=== PATIENT | female | born 1965 | race Caucasian/White ===

== ENCOUNTER → 2016-06-29 | Outpatient (REF) | payer OTHER ==
[2016-06-29 11:57] LABS: ALBUMIN 3.9 GM/DL (3.2-5.2); ALBUMIN/GLOBULIN RATIO 1.18 (1.00-1.93); ALKALINE PHOSPHATASE 80 U/L (45-117); ALT/SGPT 24 U/L (12-78); ANION GAP 8 MEQ/L (8-16); AST/SGOT 15 U/L (15-37); BILIRUBIN,TOTAL 0.3 MG/DL (0.2-1.0); BLOOD UREA NITROGEN 12 MG/DL (7-18); CARBON DIOXIDE LEVEL 26 MEQ/L (21-32); CHLORIDE LEVEL 108 MEQ/L (98-107); CHOLESTEROL LEVEL 274 MG/DL (<200); CREATININE FOR GFR 0.65 MG/DL (0.55-1.02); GLOMERULAR FILTRATION RATE > 60.0 (>58); GLUCOSE, FASTING 77 MG/DL (70-105); SODIUM LEVEL 142 MEQ/L (136-145); TOTAL PROTEIN 7.2 GM/DL (6.4-8.2); TRIGLYCERIDES LEVEL 685 MG/DL (<150)
== END ==
LOC: M SFHCCLAY 08:01
PROVIDERS: ATTEND Family Medicine
DX: E78.2 Mixed hyperlipidemia (principal)

== ENCOUNTER → 2016-09-26 | Outpatient (CLI) | payer OTHER ==
[~2016-09-26] VITALS: Ht 162.6 cm; Wt 70.3 kg
[~2016-09-26] MED LIST: FENO160T10 PO; LIDOCAINE 2% INJ 100 MG/5 ML SDV (FOR ANES.) As Ordered ONE; LR 1,000 ML IV SCH; OMEP40CA2 PO; PROPOFOL 200 MG/20 ML VIAL As Ordered ONE; SIMV40TA2 PO
--- NOTE | 2016-09-26 15:12 | ROOR ---
Patient Name: Allyn Biggs Procedure Date: 09/26/2016 1:54 PM Date of : 1965 Age: 50 Room: [facility] Gender: Female Note Status: Finalized Procedure: Upper GI endoscopy Indications: Suspected esophageal reflux Providers: Jaylen Haddad MD Referring MD: TAWNYA HOLDEN DO Requesting Provider: Medicines: Monitored Anesthesia Care Complications: No immediate complications. Procedure: Pre-Anesthesia Assessment: - Prior to the procedure, a History and Physical was performed, and patient medications and allergies were reviewed. The patient is competent. The risks and benefits of the procedure and the sedation options and risks were discussed with the patient. All questions were answered and informed consent was obtained. Patient identification and proposed procedure were verified by the physician, the nurse and the accelerator systems director in the procedure room. Mental Status Examination: alert and oriented. Airway Examination: normal oropharyngeal airway and neck mobility. CV Examination: regular rate and rhythm. Prophylactic Antibiotics: The patient does not require prophylactic antibiotics. Prior Anticoagulants: The patient has taken no previous anticoagulant or antiplatelet agents. ASA Grade Assessment: II - A patient with mild systemic disease. After reviewing the risks and benefits, the patient was deemed in satisfactory condition to undergo the procedure. The anesthesia plan was to use monitored anesthesia care (MAC). Immediately prior to administration of medications, the patient was re-assessed for adequacy to receive sedatives. The heart rate, respiratory rate, oxygen saturations, blood pressure, adequacy of pulmonary ventilation, and response to care were monitored throughout the procedure. The physical status of the patient was re-assessed after the procedure. The Endoscope was introduced through the mouth, and advanced to the second part of duodenum. The upper GI endoscopy was accomplished without difficulty. The patient tolerated the procedure well. Findings: The upper third of the esophagus and middle third of the esophagus were normal. The Z-line was regular with a couple of small erostions. and was found 35 cm from the incisors. Biopsies were taken with a cold forceps for histology. A 2 cm hiatal hernia was present. The examined duodenum was normal. A single 3 mm sessile polyp with no bleeding and no stigmata of recent bleeding was found in the cardia. The polyp was removed with a jumbo cold forceps. Resection and retrieval were complete. Estimated blood loss was minimal. Impression: - Normal upper third of esophagus and middle third of esophagus. - Z-line regular with a couple of small erostions., 35 cm from the incisors. Biopsied. - 2 cm hiatal hernia. - Normal examined duodenum. - A single gastric polyp. Resected and retrieved. Recommendation: - Discharge patient to home. - Resume previous diet. - Continue present medications. - Await pathology results. - Return to my office in 2 weeks. Jaylen Haddad MD 09/26/2016 3:12:14 PM Number of Addenda: 0 Note Initiated On: 09/26/2016 1:54 PM Estimated Blood Loss: Estimated blood loss was minimal.
[2016-09-26 15:15] VITALS: BP 126/77
--- NOTE | 2016-09-26 15:22 | ROOR ---
Patient Name: Allyn Biggs Procedure Date: 09/26/2016 1:54 PM Date of : 1965 Age: 50 Room: [facility] Gender: Female Note Status: Finalized Procedure: Colonoscopy Indications: Follow-up of diverticulitis Providers: Jaylen Haddad MD Referring MD: TAWNYA HOLDEN DO Requesting Provider: Medicines: Monitored Anesthesia Care Complications: No immediate complications. Procedure: Pre-Anesthesia Assessment: - Prior to the procedure, a History and Physical was performed, and patient medications and allergies were reviewed. The patient is competent. The risks and benefits of the procedure and the sedation options and risks were discussed with the patient. All questions were answered and informed consent was obtained. Patient identification and proposed procedure were verified by the physician, the nurse and the lead nuclear medicine technologist in the procedure room. Mental Status Examination: alert and oriented. Airway Examination: normal oropharyngeal airway and neck mobility. CV Examination: regular rate and rhythm. Prophylactic Antibiotics: The patient does not require prophylactic antibiotics. Prior Anticoagulants: The patient has taken no previous anticoagulant or antiplatelet agents. ASA Grade Assessment: II - A patient with mild systemic disease. After reviewing the risks and benefits, the patient was deemed in satisfactory condition to undergo the procedure. The anesthesia plan was to use monitored anesthesia care (MAC). Immediately prior to administration of medications, the patient was re-assessed for adequacy to receive sedatives. The heart rate, respiratory rate, oxygen saturations, blood pressure, adequacy of pulmonary ventilation, and response to care were monitored throughout the procedure. The physical status of the patient was re-assessed after the procedure. The was introduced through the anus and advanced to the cecum, identified by appendiceal orifice and ileocecal valve. The colonoscopy was performed without difficulty. The patient tolerated the procedure well. The quality of the bowel preparation was excellent. Findings: The perianal and digital rectal examinations were normal. A 11 mm polyp was found in the sigmoid colon. The polyp was pedunculated. The polyp was removed with a hot snare. Resection and retrieval were complete. Multiple small-mouthed diverticula were found in the sigmoid colon and descending colon. Impression: - One 11 mm polyp in the sigmoid colon, removed with a hot snare. Resected and retrieved. - Diverticulosis in the sigmoid colon and in the descending colon. Recommendation: - Discharge patient to home. - Resume previous diet. - Continue present medications. - Await pathology results. - Return to endoscopist in 2 weeks. Jaylen Haddad MD 09/26/2016 3:21:44 PM Number of Addenda: 0 Note Initiated On: 09/26/2016 1:54 PM Estimated Blood Loss: Estimated blood loss: none.
== END | disposition home or self-care (01) ==
LOC: M OPP 13:01
PROVIDERS: ATTEND Surgery
DX: Z09 Encounter for follow-up examination after completed treatment for conditions other than malignant neoplasm (principal); Z87.19 Personal history of other diseases of the digestive system; D12.5 Benign neoplasm of sigmoid colon; K57.30 Diverticulosis of large intestine without perforation or abscess without bleeding; K44.9 Diaphragmatic hernia without obstruction or gangrene; K31.7 Polyp of stomach and duodenum; K21.9 Gastro-esophageal reflux disease without esophagitis; K20.9 Esophagitis, unspecified; M19.90 Unspecified osteoarthritis, unspecified site; F33.9 Major depressive disorder, recurrent, unspecified; F41.9 Anxiety disorder, unspecified; E78.00 Pure hypercholesterolemia, unspecified; Z79.899 Other long term (current) drug therapy; Z88.5 Allergy status to narcotic agent; Z87.891 Personal history of nicotine dependence

== ENCOUNTER → 2016-10-02 | Outpatient (REF) | payer OTHER ==
[~2016-10-02] MED LIST changes: -LIDOCAINE 2% INJ 100 MG/5 ML SDV (FOR ANES.) As Ordered ONE; -LR 1,000 ML IV SCH; -PROPOFOL 200 MG/20 ML VIAL As Ordered ONE
[2016-10-02 18:36] LABS: ALBUMIN 3.6 GM/DL (3.2-5.2); ALBUMIN/GLOBULIN RATIO 0.92 (1.00-1.93); ALKALINE PHOSPHATASE 76 U/L (45-117); ALT/SGPT 24 U/L (12-78); ANION GAP 7 MEQ/L (8-16); AST/SGOT 9 U/L (15-37); BILIRUBIN,TOTAL 0.4 MG/DL (0.2-1.0); BLOOD UREA NITROGEN 14 MG/DL (7-18); CALCIUM LEVEL 9.1 MG/DL (8.5-10.1); CARBON DIOXIDE LEVEL 28 MEQ/L (21-32); CHLORIDE LEVEL 105 MEQ/L (98-107); CHOLESTEROL LEVEL 312 MG/DL (<200); CREATININE FOR GFR 0.64 MG/DL (0.55-1.02); GLOMERULAR FILTRATION RATE > 60.0 (>58); GLUCOSE, FASTING 89 MG/DL (70-105); POTASSIUM SERUM 4.4 MEQ/L (3.5-5.1); SODIUM LEVEL 140 MEQ/L (136-145); TOTAL PROTEIN 7.5 GM/DL (6.4-8.2); TRIGLYCERIDES LEVEL 488 MG/DL (<150)
== END ==
LOC: M SFHCCLAY 09:34
PROVIDERS: ATTEND Family Medicine
DX: E78.2 Mixed hyperlipidemia (principal); Z01.419 Encounter for gynecological examination (general) (routine) without abnormal findings

== ENCOUNTER → 2017-04-03 | Outpatient (REF) | payer OTHER ==
[2017-04-03 16:38] LABS: MEAN CORPUSCULAR HEMOGLOBIN 23.9 pg (27.0-33.0); MEAN CORPUSCULAR HGB CONC 29.8 g/dl (32.0-36.5); PLATELET COUNT, AUTOMATED 376 10^3/uL (150-450); RED CELL DISTRIBUTION WIDTH 15.2 % (11.5-14.5); WHITE BLOOD COUNT 5.3 10^3/uL (4.0-10.0)
[2017-04-03 16:43] LABS: ALBUMIN/GLOBULIN RATIO 0.98 (1.00-1.93); ALKALINE PHOSPHATASE 78 U/L (45-117); ALT/SGPT 23 U/L (12-78); ANION GAP 7 MEQ/L (8-16); AST/SGOT 15 U/L (7-37); BILIRUBIN,TOTAL 0.3 MG/DL (0.2-1.0); BLOOD UREA NITROGEN 11 MG/DL (7-18); CALCIUM LEVEL 8.9 MG/DL (8.5-10.1); CARBON DIOXIDE LEVEL 27 MEQ/L (21-32); CHLORIDE LEVEL 106 MEQ/L (98-107); CHOLESTEROL LEVEL 270 MG/DL (<200); CREATININE FOR GFR 0.64 MG/DL (0.55-1.02); FERRITIN 5 NG/ML (8-252); GLOMERULAR FILTRATION RATE > 60.0 (>51); GLUCOSE, FASTING 97 MG/DL (70-105); POTASSIUM SERUM 4.1 MEQ/L (3.5-5.1); SODIUM LEVEL 140 MEQ/L (136-145); TOTAL PROTEIN 8.1 GM/DL (6.4-8.2); TRIGLYCERIDES LEVEL 441 MG/DL (<150)
== END ==
LOC: M SFHCCLAY 11:15
PROVIDERS: ATTEND Family Medicine
DX: E78.2 Mixed hyperlipidemia (principal); D64.9 Anemia, unspecified

== ENCOUNTER → 2017-04-10 | Outpatient (CLI) | payer OTHER ==
--- NOTE | 2017-04-11 14:36 | REP ---
Clinical: Menorrhagia . Technique: Transabdominal pelvic ultrasound followed by transvaginal examination for better evaluation of the endometrium and adnexa with color Doppler evaluation of the ovaries. Findings: Bladder is unremarkable and measures 8.8 x 6.5 x 3.8 cm . Heterogeneous, enlarged myomatous uterus measures 10.6 x 6.5 x 7.5 cm and includes 4.4 cm left lateral intramural fibroid along with suspected scattered ill-defined myomatous changes. The endometrial complex measures 12.4 mm thickness and there is suggestion for a 6.7 mm polyp. Subcentimeter Nabothian cysts in the cervical region noted as well. Right ovary is not visualized. Left ovary is normal in appearance and vascularity without torsion. Left ovary measures 2.8 x 2.7 x 2.7 cm ; R I = 0.59 . No pelvic fluid or adnexal mass lesion . Impression: 1. Heterogeneous myomatous uterus as described above along with a suspected 6.7 mm endometrial polyp. 2. Right ovary not visualized. Left ovary normal. Signed by Chauncey Thompson MD 04/11/2017 02:42 A
== END ==
LOC: M RAD 10:08
PROVIDERS: ATTEND Family Medicine
DX: Z87.42 Personal history of other diseases of the female genital tract (principal); D25.9 Leiomyoma of uterus, unspecified

== ENCOUNTER → 2017-05-17 | Outpatient (CLI) | payer OTHER | LOC: M RAD 12:54 | DX: M51.36 Other intervertebral disc degeneration, lumbar region (principal); M84.851 Other disorders of continuity of bone, right pelvic region and thigh; M51.26 Other intervertebral disc displacement, lumbar region; M51.27 Other intervertebral disc displacement, lumbosacral region | CPT/HCPCS: 72148 ==

== ENCOUNTER → 2017-06-05 | Outpatient (REF) | payer OTHER ==
[2017-06-05 11:30] LABS: HEMATOCRIT 31.4 % (36.0-47.0); HEMOGLOBIN 9.3 g/dl (12.0-16.0); MEAN CORPUSCULAR HEMOGLOBIN 23.4 pg (27.0-33.0); MEAN CORPUSCULAR HGB CONC 29.6 g/dl (32.0-36.5); MEAN CORPUSCULAR VOLUME 79.1 fl (80.0-96.0); PLATELET COUNT, AUTOMATED 361 10^3/uL (150-450); RED BLOOD COUNT 3.97 10^6/uL (4.00-5.40); RED CELL DISTRIBUTION WIDTH 16.6 % (11.5-14.5); WHITE BLOOD COUNT 5.1 10^3/uL (4.0-10.0)
[2017-06-05 11:37] LABS: INR 1.02; PROTHROMBIN TIME 13.5 SECONDS (12.4-14.5)
== END ==
LOC: M SFHCCLAY 09:12
DX: Z01.812 Encounter for preprocedural laboratory examination (principal)
CPT/HCPCS: 85610

== ENCOUNTER 2017-06-22 06:30 | Day surgery (SDC) | payer OTHER ==
[2017-06-22] MEDS ORDERED: KETOROLAC 60 MG/2 ML VIAL (J1885) As Ordered (06:34)
[2017-06-22] MEDS ORDERED: ONDANSETRON 4MG/2ML VIAL (J2405) As Ordered (06:34)
[2017-06-22] MEDS ORDERED: ROCURONIUM BROMIDE 50 MG/5 ML VIAL As Ordered (06:34)
[2017-06-22] MEDS ORDERED: dexameTHASONE 4 MG/ML 1ML VIAL (J1100) As Ordered ×2 (06:34→06:42)
[2017-06-22] MEDS ORDERED: GLYCOPYRROLATE INJ 0.2 MG/ML 2 ML VIAL As Ordered ×2 (06:34→06:35)
[2017-06-22] MEDS ORDERED: NEOSTIGMINE 10 MG/10 ML VIAL (J2710) As Ordered (06:34)
[2017-06-22] MEDS ORDERED: PROPOFOL 200 MG/20 ML VIAL As Ordered (06:34)
[2017-06-22] MEDS ORDERED: LIDOCAINE 2% INJ 100 MG/5 ML SDV (FOR ANES.) As Ordered (06:35)
[2017-06-22] MEDS ORDERED: fentaNYL 250 MCG/5 ML INJECTION (J3010) As Ordered (06:48)
[2017-06-22] MEDS ORDERED: MIDAZOLAM INJ 2 MG/2 ML VIAL (J2250) As Ordered (06:48)
[2017-06-22 06:59] LABS: HEMATOCRIT 33.8 % (36.0-47.0); HEMOGLOBIN 10.3 g/dl (12.0-16.0); MEAN CORPUSCULAR HEMOGLOBIN 23.8 pg (27.0-33.0); MEAN CORPUSCULAR HGB CONC 30.5 g/dl (32.0-36.5); MEAN CORPUSCULAR VOLUME 78.2 fl (80.0-96.0); PLATELET COUNT, AUTOMATED 313 10^3/uL (150-450); RED BLOOD COUNT 4.32 10^6/uL (4.00-5.40); RED CELL DISTRIBUTION WIDTH 17.3 % (11.5-14.5); WHITE BLOOD COUNT 4.9 10^3/uL (4.0-10.0)
[2017-06-22] MEDS: LR 1,000 ML IV ×4 (07:10→18:00)
[2017-06-22] MEDS ORDERED: SCOPOLAMINE 1MG TRANSDERMAL PATCH As Ordered (07:16)
[2017-06-22] MEDS: SCOPOLAMINE 1MG TRANSDERMAL PATCH TOP (07:30)
[2017-06-22] MEDS: METHYLENE BLUE 0.5% (5MG/ML) 10 ML AMP (PROVAYBLUE)(Q9968 PER 1MG) As Ordered (08:48)
[2017-06-22] MEDS: DOCUSATE SODIUM 100 MG CAP PO ×2 (09:00→20:56)
[2017-06-22] MEDS: BUPIVACAINE HCL 0.25% 10 ML VIAL As Ordered (09:15)
[2017-06-22] MEDS ORDERED: HYDROmorphone HCL 2 MG/ML 1ML VIAL (J1170) As Ordered (09:16)
[2017-06-22] MEDS ORDERED: HYDROmorphone HCL 1 MG/ML SYRINGE (J1170) IV (10:00)
[2017-06-22] MEDS ORDERED: METOCLOPRAMIDE INJ 10MG/2ML VIAL (J2765) IV (10:00)
[2017-06-22] MEDS ORDERED: PERCOCET 5MG/325MG TAB PO ×2 (10:00→14:43)
[2017-06-22] MEDS ORDERED: ONDANSETRON 4MG/2ML VIAL (J2405) IV (10:00)
[2017-06-22] MEDS: PERCOCET 5MG/325MG TAB PO ×4 (10:18→23:10)
[2017-06-22] MEDS: fentaNYL 100 MCG/2 ML INJECTION (J3010) IV ×2 (10:36→10:41)
[2017-06-22] MEDS: MORPHINE 4 MG/ML 1ML VIAL (J2270) IV (11:43)
[2017-06-22] MEDS: KETOROLAC 30 MG/ML VIAL (J1885) IV (18:20)
[2017-06-23] MEDS: MORPHINE 4 MG/ML 1ML VIAL (J2270) IV ×5 (00:19→23:45)
[2017-06-23] MEDS: LR 1,000 ML IV ×3 (02:00→13:20)
[2017-06-23] MEDS: KETOROLAC 30 MG/ML VIAL (J1885) IV ×2 (05:05→13:20)
[2017-06-23] MEDS: PERCOCET 5MG/325MG TAB PO ×4 (05:41→21:12)
[2017-06-23] MEDS: DOCUSATE SODIUM 100 MG CAP PO ×2 (08:34→21:11)
[2017-06-23 09:16] LABS: BASO % 0.2 % (0.0-1.0); EOS # 0.1 10^3/uL (0.0-0.50); EOS % 1.2 % (0.0-3.0); HEMATOCRIT 24.6 % (36.0-47.0); IMMATURE GRANULOCYTE % 0.2 % (0-3.0); LYMPH # 1.9 10^3/uL (1.5-4.5); LYMPH % 29.4 % (24.0-44.0); MEAN CORPUSCULAR HEMOGLOBIN 24.6 pg (27.0-33.0); MEAN CORPUSCULAR HGB CONC 31.3 g/dl (32.0-36.5); MEAN CORPUSCULAR VOLUME 78.6 fl (80.0-96.0); MONO # 0.6 10^3/uL (0.0-0.8); MONO % 8.6 % (0.0-5.0); NEUTROPHILS # 3.9 10^3/uL (1.8-7.7); NEUTROPHILS % 60.4 % (36.0-66.0); PLATELET COUNT, AUTOMATED 234 10^3/uL (150-450); RED BLOOD COUNT 3.13 10^6/uL (4.00-5.40); RED CELL DISTRIBUTION WIDTH 17.6 % (11.5-14.5); WHITE BLOOD COUNT 6.5 10^3/uL (4.0-10.0)
[2017-06-23 09:21] LABS: HEMOGLOBIN 7.7 g/dl (12.0-16.0)
[2017-06-23] MEDS: ONDANSETRON 4MG/2ML VIAL (J2405) IV (19:08)
[2017-06-24] MEDS: LR 1,000 ML IV (02:00)
[2017-06-24] MEDS: PERCOCET 5MG/325MG TAB PO ×3 (02:09→10:05)
[2017-06-24] MEDS: KETOROLAC 30 MG/ML VIAL (J1885) IV (10:04)
[2017-06-24] MEDS: DOCUSATE SODIUM 100 MG CAP PO (10:04)
== END 2017-06-24 10:45 | disposition home or self-care (01) ==
LOC: M SDC 06:30 → M PED 10:51
DX: D25.0 Submucous leiomyoma of uterus (principal); K21.9 Gastro-esophageal reflux disease without esophagitis; K57.90 Diverticulosis of intestine, part unspecified, without perforation or abscess without bleeding; E78.2 Mixed hyperlipidemia; D50.0 Iron deficiency anemia secondary to blood loss (chronic); F41.9 Anxiety disorder, unspecified; F32.9 Major depressive disorder, single episode, unspecified; M54.5 Low back pain; M16.11 Unilateral primary osteoarthritis, right hip; E88.81 Metabolic syndrome and other insulin resistance; Z79.899 Other long term (current) drug therapy; Z88.8 Allergy status to other drugs, medicaments and biological substances; Z88.5 Allergy status to narcotic agent; Z87.891 Personal history of nicotine dependence
CPT/HCPCS: 58570

== ENCOUNTER → 2017-09-25 | Outpatient (CLI) | payer OTHER ==
[2017-09-25 11:32] LABS: HEMATOCRIT 36.9 % (36.0-47.0); MEAN CORPUSCULAR HEMOGLOBIN 26.6 pg (27.0-33.0); MEAN CORPUSCULAR HGB CONC 32.5 g/dl (32.0-36.5); MEAN CORPUSCULAR VOLUME 81.8 fl (80.0-96.0); PLATELET COUNT, AUTOMATED 306 10^3/uL (150-450); RED BLOOD COUNT 4.51 10^6/uL (4.00-5.40); RED CELL DISTRIBUTION WIDTH 17.7 % (11.5-14.5)
[2017-09-25 11:43] LABS: INR 0.93; PROTHROMBIN TIME 12.5 SECONDS (12.4-14.5)
[2017-09-25 12:10] LABS: ALBUMIN 3.9 GM/DL (3.2-5.2); ALBUMIN/GLOBULIN RATIO 1.03 (1.00-1.93); ALKALINE PHOSPHATASE 100 U/L (45-117); ALT/SGPT 29 U/L (12-78); ANION GAP 6 MEQ/L (8-16); AST/SGOT 14 U/L (7-37); BILIRUBIN,TOTAL 0.4 MG/DL (0.2-1.0); BLOOD UREA NITROGEN 12 MG/DL (7-18); CALCIUM LEVEL 9.4 MG/DL (8.5-10.1); CARBON DIOXIDE LEVEL 29 MEQ/L (21-32); CHLORIDE LEVEL 104 MEQ/L (98-107); CREATININE FOR GFR 0.59 MG/DL (0.55-1.30); ERYTHROCYTE SEDIMENTATION RATE 35 mm/hr (0-30); GLOMERULAR FILTRATION RATE > 60.0 (>51); GLUCOSE, FASTING 92 MG/DL (70-100); SODIUM LEVEL 139 MEQ/L (136-145); TOTAL PROTEIN 7.7 GM/DL (6.4-8.2)
== END ==
LOC: M ADMPAT 10:30
DX: Z01.818 Encounter for other preprocedural examination (principal); M16.11 Unilateral primary osteoarthritis, right hip; Z88.5 Allergy status to narcotic agent
CPT/HCPCS: 71046

== ENCOUNTER 2017-10-15 08:54 | Inpatient (IN) | payer OTHER ==
[2017-10-15] MEDS: LR 1,000 ML IV ×3 (09:41→13:45)
[2017-10-15] MEDS ORDERED: ceFAZolin 1GM INJ (J0690 PER 500MG) As Ordered (10:23)
[2017-10-15] MEDS ORDERED: PROPOFOL 200 MG/20 ML VIAL As Ordered ×5 (11:55→12:22)
[2017-10-15] MEDS ORDERED: fentaNYL 100 MCG/2 ML INJECTION (J3010) As Ordered ×2 (12:00→12:22)
[2017-10-15] MEDS ORDERED: BUPIVACAINE/DEXTROSE 0.75% 2 ML AMP As Ordered ×2 (12:01→12:24)
[2017-10-15] MEDS ORDERED: MIDAZOLAM INJ 2 MG/2 ML VIAL (J2250) As Ordered ×2 (12:07→12:22)
[2017-10-15] MEDS: EPINEPHrine INJ 1 MG/ML 1ML AMP As Ordered (12:07)
[2017-10-15] MEDS: TRANEXAMIC ACID 100 MG/ML 10ML VIAL As Ordered (12:08)
[2017-10-15] MEDS ORDERED: LIDOCAINE 2% INJ 100 MG/5 ML SDV (FOR ANES.) As Ordered ×2 (12:22→12:55)
[2017-10-15] MEDS ORDERED: dexameTHASONE 4 MG/ML 1ML VIAL (J1100) As Ordered ×2 (12:23)
[2017-10-15] MEDS ORDERED: ONDANSETRON 4MG/2ML VIAL (J2405) As Ordered ×2 (12:23→13:14)
[2017-10-15] MEDS ORDERED: ePHEDrine SULFATE 25 MG/5 ML(5MG/ML) SYRINGE As Ordered (12:24)
[2017-10-15] MEDS ORDERED: MORPHINE 1MG/ML IN 0.9% NACL 100ML IV BAG As Ordered (12:46)
[2017-10-15] MEDS ORDERED: ROCURONIUM BROMIDE 50 MG/5 ML VIAL As Ordered (12:55)
[2017-10-15] MEDS ORDERED: METOCLOPRAMIDE INJ 10MG/2ML VIAL (J2765) As Ordered (13:14)
[2017-10-15] MEDS ORDERED: PHENYLephrine HCL 500 MCG/5 ML (100MCG/ML) SYRINGE (J2370) As Ordered (13:20)
[2017-10-15] MEDS ORDERED: NEOSTIGMINE 10 MG/10 ML VIAL (J2710) As Ordered ×2 (13:31→13:32)
[2017-10-15] MEDS ORDERED: GLYCOPYRROLATE INJ 0.2 MG/ML 2 ML VIAL As Ordered (13:31)
[2017-10-15] MEDS ORDERED: HYDROmorphone HCL 2 MG/ML 1ML VIAL (J1170) As Ordered (13:40)
[2017-10-15] MEDS ORDERED: FLEET ENEMA PR (13:45)
[2017-10-15] MEDS ORDERED: MORPHINE 10 MG/ML 1ML VIAL (J2270) IV (13:45)
[2017-10-15] MEDS ORDERED: EPIDURAL/PCA KEYS XX (13:45)
[2017-10-15] MEDS ORDERED: PERCOCET 5MG/325MG TAB PO (13:45)
[2017-10-15] MEDS ORDERED: NALBUPHINE HCL 10 MG/ML AMP (J2300) IV (13:45)
[2017-10-15] MEDS ORDERED: ONDANSETRON 4MG/2ML VIAL (J2405) IV ×2 (13:45)
[2017-10-15] MEDS ORDERED: METOCLOPRAMIDE INJ 10MG/2ML VIAL (J2765) IV (13:45)
[2017-10-15] MEDS ORDERED: ACETAMINOPHEN TAB 650MG DOSE (2X325MG) PO (13:45)
[2017-10-15] MEDS ORDERED: NALOXONE INJ 0.4 MG/1 ML VIAL (J2310) IV (13:45)
[2017-10-15] MEDS ORDERED: MORPHINE 1MG/ML IN 0.9% NACL 100ML IV BAG IV (13:45)
[2017-10-15] MEDS ORDERED: fentaNYL 100 MCG/2 ML INJECTION (J3010) IV (13:45)
[2017-10-15] MEDS: ONDANSETRON 4MG/2ML VIAL (J2405) IV (20:19)
[2017-10-16] MEDS: ONDANSETRON 4MG/2ML VIAL (J2405) IV (01:28)
[2017-10-16] MEDS: LR 1,000 ML IV (03:05)
[2017-10-16] MEDS: diphenhydrAMINE INJ 50MG/ML VIAL (J1200) IV (04:10)
[2017-10-16] MEDS ORDERED: traMADol 50 MG TAB PO (07:00)
[2017-10-16] MEDS ORDERED: ONDANSETRON 4 MG TAB (S0181) PO (07:00)
[2017-10-16 07:06] LABS: HEMATOCRIT 28.9 % (36.0-47.0); HEMOGLOBIN 9.8 g/dl (12.0-15.5); MEAN CORPUSCULAR HEMOGLOBIN 28.1 pg (27.0-33.0); MEAN CORPUSCULAR HGB CONC 33.9 g/dl (32.0-36.5); MEAN CORPUSCULAR VOLUME 82.8 fl (80.0-96.0); PLATELET COUNT, AUTOMATED 247 10^3/uL (150-450); RED BLOOD COUNT 3.49 10^6/uL (4.00-5.40); RED CELL DISTRIBUTION WIDTH 17.1 % (11.5-14.5); WHITE BLOOD COUNT 7.4 10^3/uL (4.0-10.0)
[2017-10-16] MEDS: SENOKOT S TAB PO ×2 (08:44→21:16)
[2017-10-16] MEDS: traMADol 50 MG TAB PO ×3 (08:45→17:05)
[2017-10-16] MEDS: RIVAROXABAN 10 MG TAB (XARELTO) PO (08:45)
[2017-10-16] MEDS: MIRALAX *UNIT DOSE* 17GM PACKET PO (08:45)
[2017-10-16] MEDS: MOM 30ML SUSPENSION UDC PO (08:45)
[2017-10-16] MEDS: KETOROLAC 30 MG/ML VIAL (J1885) IV (13:55)
[2017-10-16] MEDS: ACETAMINOPHEN 500 MG TAB PO (21:16)
[2017-10-17] MEDS: traMADol 50 MG TAB PO ×3 (00:20→12:46)
[2017-10-17 06:42] LABS: HEMATOCRIT 29.4 % (36.0-47.0); HEMOGLOBIN 9.9 g/dl (12.0-15.5); MEAN CORPUSCULAR HEMOGLOBIN 27.4 pg (27.0-33.0); MEAN CORPUSCULAR HGB CONC 33.7 g/dl (32.0-36.5); MEAN CORPUSCULAR VOLUME 81.4 fl (80.0-96.0); PLATELET COUNT, AUTOMATED 243 10^3/uL (150-450); RED BLOOD COUNT 3.61 10^6/uL (4.00-5.40); RED CELL DISTRIBUTION WIDTH 16.8 % (11.5-14.5); WHITE BLOOD COUNT 6.4 10^3/uL (4.0-10.0)
[2017-10-17] MEDS: MOM 30ML SUSPENSION UDC PO (08:03)
[2017-10-17] MEDS: RIVAROXABAN 10 MG TAB (XARELTO) PO (08:03)
[2017-10-17] MEDS: SENOKOT S TAB PO ×2 (08:03→20:14)
[2017-10-17] MEDS: MIRALAX *UNIT DOSE* 17GM PACKET PO ×2 (08:03→08:08)
[2017-10-17] MEDS: MORPHINE 15 MG SA TAB PO ×2 (08:07→20:15)
[2017-10-18] MEDS: traMADol 50 MG TAB PO ×3 (02:17→19:25)
[2017-10-18] MEDS: MORPHINE 15 MG SA TAB PO ×2 (10:01→20:32)
[2017-10-18] MEDS: SENOKOT S TAB PO ×2 (10:02→20:32)
[2017-10-18] MEDS: MOM 30ML SUSPENSION UDC PO (10:02)
[2017-10-18] MEDS: RIVAROXABAN 10 MG TAB (XARELTO) PO (10:03)
[2017-10-18] MEDS: MIRALAX *UNIT DOSE* 17GM PACKET PO (10:03)
[2017-10-19] MEDS: traMADol 50 MG TAB PO ×2 (03:48→15:04)
[2017-10-19] MEDS: MOM 30ML SUSPENSION UDC PO (09:00)
[2017-10-19] MEDS: MIRALAX *UNIT DOSE* 17GM PACKET PO (09:00)
[2017-10-19] MEDS: CelecoXIB 400 MG CAP PO (09:41)
[2017-10-19] MEDS: RIVAROXABAN 10 MG TAB (XARELTO) PO (09:41)
[2017-10-19] MEDS: SENOKOT S TAB PO (09:42)
[2017-10-19] MEDS: MORPHINE 15 MG SA TAB PO (09:42)
== END 2017-10-19 15:10 | disposition home health service (06) | DRG 301 ==
LOC: M OR 08:54 → M MS5PR 14:45
PROC: 0SR904A Replacement of Right Hip Joint with Ceramic on Polyethylene Synthetic Substitute, Uncemented, Open Approach (ICD-10-PCS; principal; 2017-10-15 11:00)
DX: M16.11 Unilateral primary osteoarthritis, right hip (principal); I10 Essential (primary) hypertension; E78.5 Hyperlipidemia, unspecified; Z96.651 Presence of right artificial knee joint

== ENCOUNTER 2023-03-18 11:45 | Emergency (ER) | payer OTHER ==
[~2023-03-18] VITALS: Ht 162.6 cm; Wt 73.2 kg
[~2023-03-18 11:45] MED LIST changes: +ACET-683 PO; +ASPI81TA26 PO; +ATOR1TAB21 PO; +CLOP75TA99 PO; +COLA100C5 PO; +EZET10TA21 PO; +FENO145T7 PO; +METO1TAB87 PO; +MORP15TASA PO; -OMEP40CA2 PO; +OMEP40CA4 PO; +OXYC1TAB23 PO; -SIMV40TA2 PO; +SIMV40TA20 PO; +TRAM50TA2 PO; +XARE10TA PO
[2023-03-18 11:50] VITALS: TEMP 98.8
[2023-03-18] MEDS ORDERED: KETOROLAC 60MG 2ML VIAL IM ONE (13:15)
[2023-03-18 14:45] VITALS: BP 143/77; O2SAT 100
[2023-03-18] MEDS ORDERED: traMADol 50 MG TAB PO ONE (14:45)
== END 2023-03-18 14:56 | disposition home or self-care (01) ==
LOC: M ED 11:45 → EDBD 11:45 → M ED 14:56
DX: S46.811A Strain of other muscles, fascia and tendons at shoulder and upper arm level, right arm, initial encounter (principal); S46.011A Strain of muscle(s) and tendon(s) of the rotator cuff of right shoulder, initial encounter; X50.0XXA Overexertion from strenuous movement or load, initial encounter; I25.2 Old myocardial infarction; Z96.641 Presence of right artificial hip joint; Z88.5 Allergy status to narcotic agent; Z79.82 Long term (current) use of aspirin; Y92.9 Unspecified place or not applicable; Y93.89 Activity, other specified; Y99.0 Civilian activity done for income or pay
CPT/HCPCS: 73030; 76882; 96372; 99284; J1885

== ENCOUNTER 2023-08-07 12:56 | Inpatient (IN) | payer MEDICAID, OTHER ==
[~2023-08-07] VITALS: Ht 162.6 cm; Wt 64.5 kg
[2023-08-07 14:48] LABS: HEMATOCRIT 40.6 % (36.0-47.0); HEMOGLOBIN 13.4 g/dl (12.0-15.5); MEAN CORPUSCULAR HEMOGLOBIN 29.5 pg (27.0-33.0); MEAN CORPUSCULAR VOLUME 89.4 fl (80.0-96.0); PLATELET COUNT, AUTOMATED 289 10^3/uL (150-450); RED BLOOD COUNT 4.54 10^6/uL (4.00-5.40); WHITE BLOOD COUNT 6.1 10^3/uL (4.0-10.0)
[2023-08-07 15:12] LABS: ETHYL ALCOHOL (ETHANOL) 0.005 % (0.000-0.010); SALICYLATE LEVEL < 3.0 MG/DL (<30)
[2023-08-07 15:14] LABS: ALBUMIN 3.5 G/DL (3.2-5.2); ALKALINE PHOSPHATASE 113 U/L (46-116); ALT/SGPT 25 U/L (7.0-40); AST/SGOT 18 U/L (<34); BILIRUBIN,DIRECT < 0.1 MG/DL (<0.4); BILIRUBIN,TOTAL 0.5 MG/DL (0.3-1.2); BLOOD UREA NITROGEN 20 MG/DL (9-23); CALCIUM LEVEL 9.5 MG/DL (8.5-10.1); CARBON DIOXIDE LEVEL 27 MMOL/L (20-31); CHLORIDE LEVEL 106 MMOL/L (98-107); CREATININE FOR GFR 0.53 MG/DL (0.55-1.30); GLOMERULAR FILTRATION RATE > 60.0 (>51); GLUCOSE, FASTING 88 MG/DL (60-100); SODIUM LEVEL 139 MMOL/L (136-145); TOTAL PROTEIN 6.6 G/DL (5.7-8.2)
[2023-08-07 15:15] LABS: THYROID STIMULATING HORMONE 2.021 uIU/ML (0.55-4.78)
[2023-08-07 16:22] LABS: BARBITURATES URINE NEGATIVE (NEGATIVE); BENZODIAZEPINES URINE NEGATIVE (NEGATIVE); CANNABINOIDS URINE NEGATIVE (NEGATIVE); COCAINE METABOLITE URINE NEGATIVE (NEGATIVE); METHADONE URINE NEGATIVE (NEGATIVE); OPIATES URINE NEGATIVE (NEGATIVE); PHENCYCLIDINE URINE NEGATIVE (NEGATIVE)
[2023-08-07 16:24] LABS: AMPHETAMINES LEVEL URINE POSITIVE (NEGATIVE)
[2023-08-07] MEDS ORDERED: MOM 30ML SUSPENSION UDC PO PRN (20:25)
[2023-08-07] MEDS ORDERED: ACETAMINOPHEN TAB 650MG DOSE (2X325MG) PO PRN (20:25)
[2023-08-07] MEDS ORDERED: MAALOX 30 ML SUSP *UDC PO PRN (20:25)
[2023-08-07] MEDS ORDERED: ASPI81CH33 PO (22:40)
[2023-08-07] MEDS ORDERED: HOME MED LIST COMPLETE! XX SCH (22:40)
[2023-08-07] MEDS: traZODone 50 MG TAB PO PRN (22:48)
[2023-08-07] MEDS: IBUPROFEN 400MG TAB PO PRN (22:48)
[2023-08-07 23:13] VITALS: BP 131/85; TEMP 98.6; O2SAT 98
[2023-08-08 06:22] VITALS: BP 133/74; TEMP 97.7; O2SAT 100
[2023-08-08] MEDS: diphenhydrAMINE 25MG CAP PO PRN (09:20)
[2023-08-08] MEDS ORDERED: HYDR-3363 PO (11:23)
== END 2023-08-08 12:18 | disposition home or self-care (01) | DRG 755 ==
LOC: M ED 12:56 → M ED INP 20:25 → M PSY 22:06
PROVIDERS: ADMIT Psychiatry & Neurology Psychiatry; ATTEND Student in an Organized Health Care Education/Training Program
DX: F43.25 Adjustment disorder with mixed disturbance of emotions and conduct (principal); E78.5 Hyperlipidemia, unspecified; F41.9 Anxiety disorder, unspecified; F90.9 Attention-deficit hyperactivity disorder, unspecified type; Z88.5 Allergy status to narcotic agent; I25.10 Atherosclerotic heart disease of native coronary artery without angina pectoris; L40.8 Other psoriasis

== ENCOUNTER 2024-08-25 06:32 | Emergency (ER) | payer MEDICAID ==
[~2024-08-25] VITALS: Ht 162.6 cm; Wt 72.2 kg
[~2024-08-25 06:32] MED LIST changes: +ASPI81CH33 PO; +HYDR-3363 PO; +MORP-138 PO; -MORP15TASA PO
[2024-08-25 07:22] LABS: BASO % 0.3 % (0.0-1.0); EOS # 0.2 10^3/uL (0.0-0.5); EOS % 2.8 % (0.0-3.0); HEMATOCRIT 42.9 % (36.0-47.0); HEMOGLOBIN 13.9 g/dl (12.0-15.5); LYMPH # 1.8 10^3/uL (1.5-5.0); LYMPH % 26.9 % (24.0-44.0); MEAN CORPUSCULAR HEMOGLOBIN 29.1 pg (27.0-33.0); MEAN CORPUSCULAR HGB CONC 32.4 g/dl (32.0-36.5); MEAN CORPUSCULAR VOLUME 89.7 fl (80.0-96.0); MONO # 0.5 10^3/uL (0.0-0.8); MONO % 6.6 % (2.0-8.0); NEUTROPHILS # 4.3 10^3/uL (1.5-8.5); NEUTROPHILS % 63.1 % (36.0-66.0); PLATELET COUNT, AUTOMATED 275 10^3/uL (150-450); RED BLOOD COUNT 4.78 10^6/uL (4.00-5.40); WHITE BLOOD COUNT 6.8 10^3/uL (4.0-10.0)
[2024-08-25 07:27] LABS: LIPASE 33 U/L (12-53)
[2024-08-25 07:32] LABS: ALBUMIN 3.6 G/DL (3.2-5.2); ALKALINE PHOSPHATASE 118 U/L (35-104); ALT/SGPT 28 U/L (7.0-40); AST/SGOT 24 U/L (<34); BILIRUBIN,DIRECT < 0.1 MG/DL (<0.4); BILIRUBIN,TOTAL 0.3 MG/DL (0.3-1.2); BLOOD UREA NITROGEN 11 MG/DL (9-23); CARBON DIOXIDE LEVEL 26 MMOL/L (20-31); CHLORIDE LEVEL 106 MMOL/L (98-107); GLOMERULAR FILTRATION RATE > 90.0 (>51); GLUCOSE, FASTING 82 MG/DL (60-100); POTASSIUM SERUM 3.9 MMOL/L (3.5-5.1); SODIUM LEVEL 141 MMOL/L (136-145); TOTAL PROTEIN 6.9 G/DL (5.7-8.2)
[2024-08-25 07:35] LABS: CPK CREATINE PHOSPHOKINASE 81 U/L (34-145); MB/CK RELATIVE INDEX 1.23 (< OR =4)
[2024-08-25] MEDS: PANTOPRAZOLE 40MG VIAL IV ONE (07:43)
[2024-08-25 08:18] LABS: CK-MB VALUE MASS < 1.0 NG/ML (<3.6)
[2024-08-25 08:26] LABS: CPK CREATINE PHOSPHOKINASE 76 U/L (34-145); MB/CK RELATIVE INDEX 1.31 (< OR =4)
[2024-08-25] MEDS: LIDOCAINE VISCOUS 2% SOLN 15ML UDC PO ONE (10:37)
[2024-08-25] MEDS: MAALOX 30 ML SUSP *UDC PO ONE (10:37)
[2024-08-25] MEDS ORDERED: EZET10TA58 PO (10:56)
[2024-08-25] MEDS ORDERED: FENO160T10 PO (10:56)
[2024-08-25] MEDS ORDERED: METO1TAB32 PO (10:56)
[2024-08-25] MEDS ORDERED: REPA140I2 SC (10:56)
[2024-08-25] MEDS ORDERED: NITR4TASL SL (10:56)
[2024-08-25] MEDS ORDERED: HOME MED LIST COMPLETE! XX SCH (11:00)
[2024-08-25] MEDS ORDERED: PROT1TAB2 PO (11:52)
[2024-08-25 12:36] VITALS: BP 150/88
[2024-08-25 12:37] VITALS: TEMP 97.8; O2SAT 98
== END 2024-08-25 12:50 | disposition home or self-care (01) ==
LOC: M ED 06:32
DX: R07.9 Chest pain, unspecified (principal); K21.9 Gastro-esophageal reflux disease without esophagitis; I10 Essential (primary) hypertension; E78.5 Hyperlipidemia, unspecified; F32.A Depression, unspecified; F41.9 Anxiety disorder, unspecified; I25.2 Old myocardial infarction; F10.10 Alcohol abuse, uncomplicated; Z86.79 Personal history of other diseases of the circulatory system; Z88.5 Allergy status to narcotic agent; Z79.82 Long term (current) use of aspirin; Z79.899 Other long term (current) drug therapy

== ENCOUNTER 2024-09-09 21:23 | Emergency (ER) | payer MEDICAID, OTHER ==
[~2024-09-09] VITALS: Ht 162.6 cm; Wt 72.0 kg
[~2024-09-09 21:23] MED LIST changes: +EZET10TA58 PO; +METO1TAB32 PO; +NITR4TASL SL; +PROT1TAB2 PO; +REPA140I2 SC
[2024-09-10] MEDS ORDERED: CEPH500C PO (01:15)
[2024-09-10 01:30] VITALS: BP 144/68; TEMP 98
[2024-09-10] MEDS: CEPHALEXIN 500 MG CAP PO ONE (01:36)
[2024-09-10] MEDS: IBUPROFEN 800 MG TAB PO ONE (01:37)
[2024-09-10 01:38] VITALS: O2SAT 99
== END 2024-09-10 01:50 | disposition home or self-care (01) ==
LOC: M ED 21:23
DX: L03.114 Cellulitis of left upper limb (principal); I25.2 Old myocardial infarction; I10 Essential (primary) hypertension; E78.5 Hyperlipidemia, unspecified; K57.30 Diverticulosis of large intestine without perforation or abscess without bleeding; F10.10 Alcohol abuse, uncomplicated; Z86.79 Personal history of other diseases of the circulatory system; Z88.5 Allergy status to narcotic agent; Z79.82 Long term (current) use of aspirin; Z79.2 Long term (current) use of antibiotics; Z79.899 Other long term (current) drug therapy

== ENCOUNTER → 2025-01-01 | Outpatient (REF) ==
[~2025-01-01] MED LIST changes: +CEPH500C PO; -EZET10TA21 PO; +EZET10TA57 PO
== END ==
LOC: M PLAIMG 07:27
PROVIDERS: ATTEND Internal Medicine
DX: M19.042 Primary osteoarthritis, left hand (principal); M19.071 Primary osteoarthritis, right ankle and foot